=== PATIENT | female | born 1965 | race Caucasian/White ===

== ENCOUNTER 2020-06-23 18:15 | Emergency (ER) | payer OTHER, SELFPAY ==
--- NOTE | ~2020-06-23 | CT_ITS ---
EXAMINATION: CT brain wo con INDICATION: Head injury and headache COMPARISON: None TECHNIQUE: Standard unenhanced head CT. The dose-length product (DLP) was 605.33 mGy-cm. The mA was a djusted according to patient size. Iterative reconstruction technique was employed. FINDINGS: There is no intracranial hemorrhage, acute infarction, or abnormal mass lesion. The ventric les are normal. There is no abnormal mass effect or midline shift. The razo-white matter differentiat ion is normal. The basal cisterns are patent. The orbits are normal. There is mild mucosal thickening of the paranasal sinuses. IMPRESSION: 1. No acute intracranial abnormality. Reviewed, dictated and finalized at location A. ROFIT DIRECTOR
--- NOTE | ~2020-06-23 | CT_ITS ---
EXAMINATION: CT cervical spine wo con DATE: 06/23/2020 23:14 INDICATION: Neck pain, head injury TECHNIQUE: Computed tomography (CT) of the cervical spine was performed without intravenous contrast. The dose-length product (DLP) was 187.35 mGy-cm. Automated exposure control and iterative reconstruc tion technique were employed. COMPARISON: None FINDINGS: There is 1 mm of anterolisthesis of C4 on C5. Vertebral body alignment is otherwise maintai cecilio. The vertebral body heights are normal. There is moderate loss of intervertebral disc space heigh t at C5-6 and C6-7. The odontoid is intact. There is mild to moderate multilevel facet and uncoverteb ral joint osteoarthritis. IMPRESSION: 1. Moderate cervical spondylosis without acute findings. Reviewed, dictated and finalized at location A. NESS PERFORMANCE SPECIALIST
--- NOTE | ~2020-06-23 | XR_ITS ---
EXAMINATION: XR chest 2V DATE: 06/23/2020 23:17 INDICATION: Chest pain TECHNIQUE: PA and lateral views of the chest are obtained. COMPARISON: None available FINDINGS: The lungs are free of acute opacities. There is no pleural effusion or pneumothorax. The ca rdiomediastinal silhouette is normal. There is mild thoracic spondylosis. IMPRESSION: 1. No acute cardiopulmonary abnormality. Reviewed, dictated and finalized at location A. RIAL EMBALMER
[2020-06-23 19:41] VITALS: BP 130/66; PULSE 69; RESP 18; TEMP 36.6; O2SAT 100
--- NOTE | 2020-06-23 22:41 | ECG_ITS ---
Measurements Intervals [place] Rate: 55 P: 43 TX: 162 QRS: 38 QRSD: 79 T: 44 QT: 420 QTc: 404 Interpretive Statements SINUS BRADYCARDIA BORDERLINE ECG Electronically Signed On 06-24-2020 7:11:36 HOSIERY PAIRER by Gabo Wong D.O.
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
[2020-06-23 23:54] VITALS: BP 115/69; PULSE 63; RESP 17; O2SAT 98
== END 2020-06-23 23:55 | disposition home or self-care (01) ==
PROVIDERS: Emergency Provider General Practice
DX: S13.4XXA Sprain of ligaments of cervical spine, initial encounter (principal); S09.90XA Unspecified injury of head, initial encounter; M47.812 Spondylosis without myelopathy or radiculopathy, cervical region; V43.52XA Car driver injured in collision with other type car in traffic accident, initial encounter
CPT/HCPCS: 70450; 71046; 72125; 93005; 99284

== ENCOUNTER 2025-04-09 10:53 | Emergency (ER) | payer OTHER, SELFPAY ==
[2025-04-09 10:57] VITALS: BP 137/63; PULSE 83; RESP 16; TEMP 36.4; O2SAT 97
--- OUTSIDE RECORDS SUMMARY | 2025-04-09 11:37 | XMS_ITS | Clinical Summary ---
Author Organization [facility] Address [address] [address] Phone Care Team Providers Care Child Custody Evaluator Name Role Phone Unavailable Primary Care Provider Unavailabl e Allergies Active Allergy Reactions Criticality Noted Date Comments Shellfish Allergy Anaphylaxis 01/17/2016 Medications venlafaxine (EFFEXOR-XR) 75 MG CAPSULE SR 24 HR Take 1 Cap by mouth daily. 90 Cap 2 01/17/2016 Active Active Problems Problem Noted Date Diagnosed Date Physical exam, annual (Adult) 01/17/2016 Tobacco abuse 01/17/2016 Breast cancer screening 01/17/2016 Perimenopause 01/17/2016 Immunizations Immunization Administration Dates Next Due Pneumococcal Vaccine Adult - 23 Valent 8 Family History Medical History Relation Name Comments Congestive Heart Failure Father Hypertension Mother Stroke Mother Relation Name Status Comments Father Mother Social History Tobacco Use Types Packs/Day Years Used Date Smoking Tobacco: Heavy Smoker Cigarettes Smokeless Tobacco: Never Alcohol Use Standard Drinks/Week Comments No 0 (1 standard drink = 0.6 oz pur e alcohol) Sexually Active Control Partners Comments Not Currently Comments No Sex and Gender Information Value Date Recorded Sex Assigned at Not on file Legal Sex Female 4:19 PM CDT Gender Identity Not on file Sexual Orientation Not on file Last Filed Vital Signs Vital Sign Reading Time Taken Comments Blood Pressure 124/64 01/17/2016 1:58 PM CDT Pulse 67 01/17/2016 1:58 PM CDT Temperature 36.6 C (97.8 F) 01/17/2016 1:58 PM CDT Respiratory Rate 18 01/17/2016 1:58 PM CDT Oxygen Saturation 98% 01/17/2016 1:58 PM CDT Inhaled Oxygen Concentration - - Weight 57.6 kg (127 lb) 01/17/2016 1:58 PM CDT Height 162.6 cm (5' 4) 01/17/2016 1:58 PM CDT Body Mass Index 21.8 01/17/2016 1:58 PM CDT Plan of Treatment Health Maintenance Due Date Last Done Comments Hepatitis C Virus (HCV) Screening 1967 TdaP Immunization 1967 Hepatitis B Immunization (1 of 3 - 19+ 3-dose series) 1986 Pap Smear 1988 Cervical Cancer Screening (CCS) 1997 HPV/Cotest 1997 Cologuard 2012 Colonoscopy 2012 Colorectal Cancer Screening 2012 Immunochemical Fecal Occult Blood 2012 Pneumococcal Immunization (5 0+ years) (2 of 2 - PCV) 2017 03/12/1998 Zoster Immunization (1 of 2) 2017 Influenza Immunization (#1) 2025 SARS-COV-2 Immunization ( - season) 2025 Respiratory Syncytial Virus (RSV) Immunization (Adult) (1 - 1-dose 75+ series) 2042 Pneumococcal Immunization Combined Discontinued 1997 Human Papillomavirus (HPV) Immunization Aged Out No longer eligible b ased on patient's age to complete this topic Meningococcal Immunization (ACWY) Aged Out No longer eligible based on patient's age to complete this topic Rotavirus Immunization Aged Out No lo nger eligible based on patient's age to complete this topic
--- NOTE | 2025-04-09 12:14 | ED.URI ---
HPI - URI/Sore Throat General Chief Complaint: Upper Respiratory Infection Stated Complaint: head congestion Time Seen by Provider: 04/09/25 12:14 Source: patient, RN notes reviewed and old records reviewed Mode of arrival: ambulatory Limitations: no limitations History of Present Illness HPI Narrative: 59 year old female who presents to [facility] care with complaints of sinus congestion with drainage,runny nose for the past 6 days. Now patient states that she is also having sinus pain with nares sore and tip of nose is red and swollen also. Patient reports that she has not had any known fevers, acute cough or any sore throat.Patient reports that she has taken some sinus allergy medication for her symptoms. MD elicited complaint: sore throat, rhinorrhea, nasal congestion, sinus pain and other (nasal soreness) Pertinent past history: sinusitis Onset (ago): day(s) (6) Consistency: constant Pain scale (0-10): 5 Description of mucous: clear Able to tolerate fluids by mouth: Yes Treatments prior to arrival: other (sinus allergy medication) Related Data Allergies Allergy/AdvReac Type Severity Reaction Status Date / Time shellfish derived Allergy Anaphylaxis Verified 06/23/20 19:47 Review of Systems Review of Systems: CONSTITUTIONAL: Reports malaise,no chills, sweats, or fever. EYES: Denies visual changes, redness, or discharge. ENT: Reports rhinorrhea, congestion, sinus pain, no otalgia and no sore throat. CARDIOVASCULAR: Denies chest pain, palpitations, or edema. RESPIRATORY: Reports no cough.? Denies dyspnea. GASTROINTESTINAL: Denies abdominal pain, nausea, vomiting, diarrhea SKIN: Denies rash or itching. MUSCULOSKELETAL: Denies myalgia. NEUROLOGIC: Denies headache. All systems reviewed & are unremarkable except as noted in HPI and below PMFSH Past Medical History Medical History Sinusitis Anxiety Surgical History Surgical History S/P laparoscopic surgery Social History Social History Additional smoking assessment comments: no smoking Alcohol intake: current Alcohol use details: rare Substance use type: does not use Living arrangements: with family Gender identity (if verbalized by the patient): Female Comments At time of signature, agree with nursing past medical, surgical, social and family history. There is no relevant family history pertinent to the presenting complaint Exam Narrative: GENERAL: ill-appearing, well-nourished, and in no acute distress. HEAD: Normocephalic EYES: PERRLA, conjunctivae clear ENT: Nares clear, turbinates edematous and erythematous, clear discharge sinus pressure nasal passages sore and tip of nose red and swollen,. Mucous membranes moist. TM pearly razo with dull light reflex bilaterally; no tragal tenderness. Oropharynx erythematous without lesions. Tonsils not enlarged and without exudate, no drooling, no hoarseness, no trismus, uvula midline. NECK: Supple. No lymphadenopathy CHEST: Clear to auscultation, breath sounds equal. No wheezing, rhonchi, rales, or stridor. No respiratory distress, speaks in full sentences.no cough noted SAO2 97% on room air HEART: Regular rate and rhythm. No murmur heard. SKIN: Warm, dry, no rash. NEURO: Alert and oriented x3. PSYCH: Normal mood and affect, anxious Course Course Emergency Course: Patient is aware of diagnosis, understands and agrees to treatment plan.? Anticipatory guidance given.? Patient agrees to follow-up as directed and is aware of reasons to seek care at the emergency department. Portions of this record may have been created with voice recognition software Level of Care: Express Care Visit Vital Signs Vital signs: Vital Signs Temperature 36.4 C L 04/09/25 10:57 Pulse Rate 83 04/09/25 10:57 Respiratory Rate 16 04/09/25 10:57 Blood Pressure 137/63 04/09/25 10:57 Pulse Oximetry 97 04/09/25 10:57 Oxygen Delivery Room Air 04/09/25 10:57 Temperature 36.4 C L 04/09/25 10:57 Pulse Rate 83 04/09/25 10:57 Respiratory Rate 16 04/09/25 10:57 Blood Pressure 137/63 04/09/25 10:57 Pulse Oximetry 97 04/09/25 10:57 Oxygen Delivery Room Air 04/09/25 10:57 Reviewed MDM - URI/Sore Throat MDM Narrative Medical decision making narrative: Differential diagnosis considered: Vega virus, strep pharyngitis, allergic rhinitis, upper respiratory tract infection, sinusitis, rhinosinusitis, nasopharyngitis. viral pharyngitis, otitis media, otitis externa, pneumonia, bronchitis, viral cough syndrome, viral syndrome, and influenza.? Exam findings show no acute concerns or changes; patient is non-toxic appearing and is in no distress.? Patient is appropriate for outpatient treatment and follow-up. Differential Diagnosis Differential diagnosis: Likely upper respiratory infection, sinusitis, viral infection, influenza and other (COVID) Medical Records Attestation: I reviewed the patient's medical records. Lab Data Attestation: I reviewed the patient's lab results. Lab results narrative: Influenza A&B negative, COVID antigen negative Labs: Lab Results 04/09/25 Range/Units 12:18 POC Influenza A Ag Negative (Negative) POC Influenza B Ag Negative (Negative) POC SARS CoV-2 Ag Negative (Negative) reviewed Critical Care Time Critical Care Time Critical Care Time: No Discharge Plan Discharge Clinical Impression: Bacterial sinusitis Patient Disposition: Home Condition: Stable Instructions: Antibiotic Form, Sinusitis (ED) Additional Instructions: Increase fluids especially juices and water [id number] cough and cold medicine of your choice for your symptoms Bactroban to nasal area twice daily heat to the face 20-30 minutes 4-6 times a day for pain Salt water gargles, throat lozenges or throat sprays as desired Antibiotic as directed--finished the medication Tylenol or ibuprofen for any fever pain If your symptoms persist, change or worsen significantly before you can contact your personal physician then please, without delay, go to the emergency department for further evaluation. Follow-up with PCP in 7-10 days or sooner if needed Follow up with PCP soon in regards to your blood pressure which is elevated above threshold for referral. Blood pressure above 120/80 may indicate pre-hypertension. 137/63 Patient Language: Arabic Prescriptions: New mupirocin [Centany] 2 % ointment 1 applic topical BID Qty: 22 0RF Rx Instructions: apply to nasal area twice daily amoxicillin-pot clavulanate 875-125 mg tablet 1 tablet PO Q12H Qty: 20 0RF Rx Instructions: take with food take all of prescription recommend using probiotic or eating Activia yogurt daily on this medication No Action ibuprofen 600 mg tablet 600 mg PO Q6H PRN (Reason: pain) Qty: 10 0RF cyclobenzaprine 5 mg tablet 5 mg PO TID PRN (Reason: muscle spasm) Qty: 10 0RF Follow-up/Referrals: Valdez,Caridad Zavala APN [Primary Care Provider, Unknown] Time of Disposition: 12:22 Quality Jarret Coma Scale Eyes: Open Verbal: Oriented and Alert Motor: Follows Commands Jarret Coma Total Score: 15
[2025-04-09 12:20] LABS: EDCOVIDSCREEN Negative (Negative); EDINFLUASCREEN Negative (Negative); EDINFLUBSCREEN Negative (Negative)
== END 2025-04-09 12:31 | disposition home or self-care (01) ==
PROVIDERS: Emergency Provider Registered Nurse; PCP Nurse Practitioner Family
DX: J32.9 Chronic sinusitis, unspecified (principal); Z20.822 Contact with and (suspected) exposure to COVID-19
CPT/HCPCS: 87426; 87804; 99213; G0463